=== PATIENT | male | born 1980 | race Caucasian/White ===

== ENCOUNTER 2020-04-09 23:54 | Emergency (ER) | payer MEDICAID, OTHER ==
[~2020-04-09] VITALS: Ht 177.8 cm; Wt 79.0 kg
[2020-04-09 23:56] VITALS: BP 124/81
[2020-04-10] MEDS ORDERED: HYDROCODONE/ACETAMINOPHEN 10/325MG TABLET PO ONE (01:00)
== END 2020-04-10 01:07 | disposition home or self-care (01) ==
LOC: ER 23:59
DX: S42.001A Fracture of unspecified part of right clavicle, initial encounter for closed fracture (principal); S80.812A Abrasion, left lower leg, initial encounter; S80.811A Abrasion, right lower leg, initial encounter; S40.811A Abrasion of right upper arm, initial encounter; S40.812A Abrasion of left upper arm, initial encounter; F15.10 Other stimulant abuse, uncomplicated; V18.0XXA Pedal cycle driver injured in noncollision transport accident in nontraffic accident, initial encounter; Y93.55 Activity, bike riding; Y92.89 Other specified places as the place of occurrence of the external cause; R03.0 Elevated blood-pressure reading, without diagnosis of hypertension
CPT/HCPCS: 71045; 99283

== ENCOUNTER 2021-06-26 18:05 | Emergency (ER) | payer OTHER ==
[~2021-06-26] VITALS: Ht 175.3 cm; Wt 70.0 kg
[2021-06-26] MEDS ORDERED: LIDOCAINE HCL/EPINEPHRINE 1%-EPI 1:100,000 20 ML VIAL INFIL ONE (21:00)
[2021-06-26] MEDS ORDERED: TETANUS, DIPHTHERIA, PERTUSSIS VAC/PF 0.5ML (>7YR OLD) IM ONE (21:00)
[2021-06-26] MEDS ORDERED: BACITRACIN ZINC OINT UDPKT TOP ONE (21:00)
[2021-06-26] MEDS ORDERED: HYDROCODONE/ACETAMINOPHEN 5/325MG TABLET PO ONE (21:00)
[2021-06-27] MEDS ORDERED: CEFTRIAXONE 2 G PREMIX 50 ML IV ONE (03:00)
[2021-06-27 03:53] LABS: EOSINOPHILS % 3.8 % (0.0-5.0); HEMATOCRIT. 41.6 % (42.0-52.0); HEMOGLOBIN. 14.5 g/dL (14.0-18.0); LYMPHOCYTES % 28.5 % (20.0-50.0); MEAN CORPUSCULAR HEMOGLOBIN 30.9 pg (28.0-32.0); MEAN CORPUSCULAR VOLUME 88.8 fL (80.0-94.0); MEAN PLATELET VOLUME 7.8 fl (7.4-10.4); MONOCYTES % 7.7 % (2.0-8.0); PLATELET 334 x1000/uL (130-400); RED BLOOD CELL COUNT 4.69 mill/uL (4.7-6.1); RED CELL DISTRIBUTION WIDTH 14.4 % (11.6-14.6)
[2021-06-27 03:54] LABS: CHLORIDE 103 mEq/L (98-107)
[2021-06-27 03:58] LABS: PROTHROMBIN TIME 10.3 sec (9.6-11.0)
[2021-06-27] MEDS ORDERED: HYDROCODONE/ACETAMINOPHEN 10/325MG TABLET PO ONE (05:45)
[2021-06-27 08:26] VITALS: BP 138/85
== END 2021-06-27 10:15 | disposition short-term general hospital (02) ==
LOC: ER 18:05
DX: S81.021A Laceration with foreign body, right knee, initial encounter (principal); Z86.59 Personal history of other mental and behavioral disorders; W01.0XXA Fall on same level from slipping, tripping and stumbling without subsequent striking against object, initial encounter; Y93.89 Activity, other specified; Y92.89 Other specified places as the place of occurrence of the external cause; Y99.8 Other external cause status
CPT/HCPCS: 12002; 73700; 90471; 90715; 96365; 96366; 99285; J0696; J3490; Z7610

== ENCOUNTER 2021-10-08 22:22 | Emergency (ER) | payer OTHER ==
[~2021-10-08] VITALS: Ht 175.3 cm; Wt 77.0 kg
[2021-10-08] MEDS ORDERED: TETANUS, DIPHTHERIA, PERTUSSIS VAC/PF 0.5ML (>10YR OLD) IM ONE (23:00)
[2021-10-08 23:06] LABS: BASOPHILS % 1.5 % (0.0-2.0); EOSINOPHILS % 3.6 % (0.0-5.0); HEMATOCRIT. 43.1 % (42.0-52.0); LYMPHOCYTES % 35.9 % (20.0-50.0); MEAN CORPUSCULAR HEMOGLOBIN 30.8 pg (28.0-32.0); MEAN CORPUSCULAR VOLUME 88.5 fL (80.0-94.0); MEAN PLATELET VOLUME 6.9 fl (7.4-10.4); MONOCYTES % 11.1 % (2.0-8.0); NEUTROPHILS % 47.9 % (40.0-76.0); PLATELET 465 x1000/uL (130-400); RED BLOOD CELL COUNT 4.87 mill/uL (4.7-6.1); RED CELL DISTRIBUTION WIDTH 13.5 % (11.6-14.6)
[2021-10-08 23:13] LABS: CHLORIDE 104 mEq/L (98-107)
[2021-10-08 23:18] LABS: ETHANOL BLOOD < 10 mg/dL
[2021-10-09] MEDS ORDERED: HALOPERIDOL LACTATE 5MG/ML VIAL IM ONE (01:30)
[2021-10-09 02:34] LABS: CLARITY URINE TURBID (CLEAR); COLOR URINE YELLOW (YELLOW); KETONES URINE NEGATIVE (NEGATIVE); LEUKOCYTE ESTERASE URINE NEGATIVE (NEGATIVE); NITRITE URINE NEGATIVE (NEGATIVE); OCCULT BLOOD URINE NEGATIVE (NEGATIVE); PROTEIN URINE NEGATIVE (NEGATIVE); SPECIFIC GRAVITY URINE 1.022 (1.005-1.030); UROBILINOGEN URINE 0.2 E.U./dL (0.2-1.0)
[2021-10-09 02:45] LABS: *AMPHETAMINES SCREEN URINE PRESUMTIVE POSITIVE (NEGATIVE); *BARBITURATES SCREEN URINE NEGATIVE (NEGATIVE); *BENZODIAZEPINES SCREEN URINE NEGATIVE (NEGATIVE); *COCAINE SCREEN URINE NEGATIVE (NEGATIVE); METHADONE URINE SCREEN NEGATIVE (NEGATIVE); OPIATES URINE SCREEN NEGATIVE (NEGATIVE)
[2021-10-09 02:46] LABS: CANNABINOID URINE SCREEN NEGATIVE (NEGATIVE); PHENCYCLIDINE URINE SCREEN NEGATIVE (NEGATIVE)
[2021-10-09] MEDS: OLANZAPINE 5MG TABLET PO SCH ×2 (09:58→17:43)
[2021-10-10] MEDS: OLANZAPINE 5MG TABLET PO SCH ×2 (09:25→17:37)
[2021-10-11] MEDS: OLANZAPINE 5MG TABLET PO SCH (09:00)
[2021-10-11] MEDS ORDERED: ZYDS20 PO (13:44)
[2021-10-11 14:41] VITALS: BP 100/61
== END 2021-10-11 14:46 | disposition home or self-care (01) ==
LOC: ER 22:22
DX: S00.01XA Abrasion of scalp, initial encounter (principal); S00.81XA Abrasion of other part of head, initial encounter; F25.9 Schizoaffective disorder, unspecified; F31.9 Bipolar disorder, unspecified; Z20.822 Contact with and (suspected) exposure to COVID-19; F15.10 Other stimulant abuse, uncomplicated; Y04.0XXA Assault by unarmed brawl or fight, initial encounter; Y93.89 Activity, other specified; Y92.89 Other specified places as the place of occurrence of the external cause; Y99.8 Other external cause status
CPT/HCPCS: 36415; 70450; 80053; 80307; 80320; 80329; 82962; 85025; 90471; 90715; 96372; 99285; C9803; U0003; U0005; G0480

== ENCOUNTER 2021-10-15 21:34 | Emergency (ER) | payer OTHER ==
[~2021-10-15] VITALS: Ht 172.7 cm; Wt 73.0 kg
[~2021-10-15 21:34] MED LIST: ZYDS20 PO
[2021-10-16] MEDS ORDERED: OLANZAPINE 10 MG/VIAL IM ONE ×2 (00:45→02:30)
[2021-10-16] MEDS ORDERED: MIDAZOLAM HCL 2 MG/2 ML VIAL IM ONE ×2 (00:45→02:15)
[2021-10-16] MEDS ORDERED: TETANUS, DIPHTHERIA, PERTUSSIS VAC/PF 0.5ML (>10YR OLD) IM ONE (01:45)
[2021-10-16] MEDS ORDERED: DIPHENHYDRAMINE 50MG/ML VIAL IM ONE (01:45)
[2021-10-16] MEDS ORDERED: DIPHENHYDRAMINE 50MG/ML VIAL IM PRN (01:45)
[2021-10-16] MEDS ORDERED: KETAMINE HCL 50 MG/ML 10ML IM ONE (02:30)
[2021-10-16 03:12] LABS: BASOPHILS % 0.7 % (0.0-2.0); EOSINOPHILS % 0.2 % (0.0-5.0); HEMATOCRIT. 40.6 % (42.0-52.0); HEMOGLOBIN. 14.1 g/dL (14.0-18.0); LYMPHOCYTES % 9.6 % (20.0-50.0); MEAN CORPUSCULAR HEMOGLOBIN 30.6 pg (28.0-32.0); MEAN CORPUSCULAR VOLUME 88.2 fL (80.0-94.0); MEAN PLATELET VOLUME 7.8 fl (7.4-10.4); MONOCYTES % 8.9 % (2.0-8.0); NEUTROPHILS % 80.6 % (40.0-76.0); PLATELET 380 x1000/uL (130-400); RED CELL DISTRIBUTION WIDTH 13.1 % (11.6-14.6)
[2021-10-16 03:13] LABS: CHLORIDE 102 mEq/L (98-107)
[2021-10-16 03:17] LABS: ETHANOL BLOOD < 10 mg/dL
[2021-10-16 06:26] VITALS: BP 94/50
== END 2021-10-16 06:55 ==
LOC: ER 21:34
DX: R45.1 Restlessness and agitation (principal); T43.625A Adverse effect of amphetamines, initial encounter; Y92.89 Other specified places as the place of occurrence of the external cause; F12.10 Cannabis abuse, uncomplicated
CPT/HCPCS: 12001; 36415; 80048; 80320; 85025; 90471; 90715; 96372; 99284; J2250; J3490; J1200; G0480

== ENCOUNTER 2022-02-25 06:12 | Emergency (ER) | payer MEDICAID, OTHER ==
[~2022-02-25] VITALS: Ht 175.3 cm; Wt 80.0 kg
[2022-02-25] MEDS ORDERED: ACETAMINOPHEN 325MG TABLET PO ONE (07:00)
[2022-02-25] MEDS ORDERED: LORAZEPAM 1MG TABLET PO ONE (07:00)
[2022-02-25 07:31] LABS: BASOPHILS % 0.9 % (0.0-2.0); EOSINOPHILS % 6.3 % (0.0-5.0); HEMATOCRIT. 45.6 % (42.0-52.0); HEMOGLOBIN. 15.9 g/dL (14.0-18.0); MEAN CORPUSCULAR HEMOGLOBIN 31.3 pg (28.0-32.0); MEAN CORPUSCULAR VOLUME 89.9 fL (80.0-94.0); MEAN PLATELET VOLUME 7.5 fl (7.4-10.4); MONOCYTES % 9.4 % (2.0-8.0); NEUTROPHILS % 59.4 % (40.0-76.0); PLATELET 351 x1000/uL (130-400); RED BLOOD CELL COUNT 5.08 mill/uL (4.7-6.1); RED CELL DISTRIBUTION WIDTH 13.6 % (11.6-14.6)
[2022-02-25 07:38] LABS: CHLORIDE 104 mEq/L (98-107)
[2022-02-25 07:47] LABS: ETHANOL BLOOD < 10 mg/dL
[2022-02-25] MEDS ORDERED: TOPUD PO (10:58)
[2022-02-25 11:55] VITALS: BP 109/74
== END 2022-02-25 12:07 | disposition home or self-care (01) ==
LOC: ER 06:12
DX: F33.9 Major depressive disorder, recurrent, unspecified (principal); R45.851 Suicidal ideations; E86.0 Dehydration; R51.9 Headache, unspecified; Z20.822 Contact with and (suspected) exposure to COVID-19; F15.10 Other stimulant abuse, uncomplicated; F12.90 Cannabis use, unspecified, uncomplicated
CPT/HCPCS: 36415; 80053; 80320; 85025; 99283; C9803; U0003; U0005; G0480